=== PATIENT | male | born 1985 | race Caucasian/White ===

== ENCOUNTER 2019-07-26 14:41 | Inpatient (IN) | payer MEDICAID ==
[~2019-07-26] VITALS: Ht 175.3 cm; Wt 123.8 kg
[2019-07-26 14:58] VITALS: BP_SYST 138
[2019-07-26] MEDS ORDERED: NACL 0.9% 1,000 ML IV ONE (16:53)
[2019-07-26] MEDS ORDERED: ONDANSETRON HCL 4 MG/2 ML VIAL IVP ONE (17:00)
[2019-07-26] MEDS ORDERED: MORPHINE 4 MG/ML INJ. SYRINGE IVP ONE (17:00)
[2019-07-26 17:19] LABS: BASOPHILS # (AUTO) 0.1 K/uL (0.0-0.2); BASOPHILS % (AUTO) 0.4 % (0.0-2.0); EOSINOPHILS # (AUTO) 0.1 K/uL (0.0-0.4); EOSINOPHILS % (AUTO) 0.5 % (0.0-4.0); HEMATOCRIT 43.4 % (36-54); HEMOGLOBIN 14.6 g/dL (14.0-18.0); LYMPHOCYTES # (AUTO) 2.3 K/uL (1.0-5.5); LYMPHOCYTES % (AUTO) 16.4 % (20.5-51.5); MEAN CORPUSCULAR HEMOGLOBIN 33 pg (27-31); MEAN CORPUSCULAR HGB CONC 34 % (32-36); MEAN CORPUSCULAR VOLUME 97 fL (79.0-98.0); MONOCYTES # (AUTO) 1.4 K/uL (0.0-1.0); MONOCYTES % (AUTO) 10.1 % (1.7-9.3); NEUTROPHILS # (AUTO) 10.4 K/uL (1.8-7.7); NEUTROPHILS % (AUTO) 72.6 % (40.0-70.0); PLATELET COUNT (AUTO) 213 K/uL (130-430); RED BLOOD CELL COUNT(AUTO) 4.47 MIL/uL (4.2-6.2); WHITE BLOOD COUNT (AUTO) 14.3 K/uL (4.8-10.8)
[2019-07-26 17:38] LABS: CALCIUM 8.4 mg/dL (8.4-11.0); CREATININE 1.05 mg/dL (0.55-1.30); POTASSIUM 4.1 mmol/L (3.5-5.1)
[2019-07-26 17:45] LABS: ALBUMIN 3.2 g/dL (3.4-4.8); TOTAL BILIRUBIN 0.7 mg/dL (0.0-1.0)
[2019-07-26] MEDS ORDERED: LEVOFLOXACIN 500 MG/D5W 100 ML IV ONE (18:00)
[2019-07-26] MEDS ORDERED: metroNIDAZOLE 500 mg/NS 100 ML IV ONE (18:00)
[2019-07-26 18:04] LABS: BILIRUBIN,URINE NEGATIVE (NEGATIVE); BLOOD, URINE 2+ (NEGATIVE); CLARITY/URINE CLEAR (CLEAR); COLOR,URINE YELLOW (YELLOW); GLUCOSE,URINE NEGATIVE (NEGATIVE); KETONES,URINE NEGATIVE (NEGATIVE); LEUKOCYTE ESTERASE ,URINE NEGATIVE (NEGATIVE); NITRITE, URINE NEGATIVE (NEGATIVE); PH,URINE 6.5 (5.0-8.0); PROTEIN URINE NEGATIVE (NEGATIVE)
[2019-07-26 19:13] LABS: WBC,URINE 0-3 /HPF (0-3)
[2019-07-26 19:14] LABS: BACTERIA,URINE FEW /HPF (None Seen); MUCUS,URINE 1+ /LPF (None Seen)
[2019-07-26] MEDS ORDERED: MORPHINE 4 MG/ML INJ. SYRINGE IVP SCH (19:30)
[2019-07-26 20:36] VITALS: BP_SYST 144
[2019-07-26] MEDS: POTASSIUM CHLORIDE 10 MEQ in D5/0.45 NS 1,000 ML IV SCH (21:08)
[2019-07-26] MEDS ORDERED: ACETAMINOPHEN 650 MG SUPP.RECT RC PRN (21:15)
[2019-07-26] MEDS ORDERED: ONDANSETRON HCL 4 MG/2 ML VIAL IVP PRN (21:15)
[2019-07-26] MEDS: MORPHINE 4 MG/ML INJ. SYRINGE IVP PRN (22:09)
[2019-07-26] MEDS ORDERED: metroNIDAZOLE 500 mg/NS 200 ML IV ONE (22:21)
[2019-07-26] MEDS: metroNIDAZOLE 500 mg/NS 100 ML IV SCH (23:37)
[2019-07-27 00:38] VITALS: BP_SYST 122
[2019-07-27] MEDS: metroNIDAZOLE 500 mg/NS 100 ML IV SCH ×3 (05:34→22:20)
[2019-07-27 06:10] LABS: BASOPHILS % (AUTO) 0.3 % (0.0-2.0); EOSINOPHILS # (AUTO) 0.1 K/uL (0.0-0.4); EOSINOPHILS % (AUTO) 0.5 % (0.0-4.0); HEMATOCRIT 41.4 % (36-54); HEMOGLOBIN 13.9 g/dL (14.0-18.0); LYMPHOCYTES # (AUTO) 1.8 K/uL (1.0-5.5); LYMPHOCYTES % (AUTO) 14.4 % (20.5-51.5); MEAN CORPUSCULAR HEMOGLOBIN 33 pg (27-31); MEAN CORPUSCULAR HGB CONC 34 % (32-36); MEAN CORPUSCULAR VOLUME 98 fL (79.0-98.0); MONOCYTES # (AUTO) 1.4 K/uL (0.0-1.0); NEUTROPHILS # (AUTO) 9.3 K/uL (1.8-7.7); NEUTROPHILS % (AUTO) 73.8 % (40.0-70.0); PLATELET COUNT (AUTO) 190 K/uL (130-430); RED BLOOD CELL COUNT(AUTO) 4.25 MIL/uL (4.2-6.2); RED CELL DISTRIBUTION WIDTH 13.1 % (9.0-15.0); WHITE BLOOD COUNT (AUTO) 12.6 K/uL (4.8-10.8)
[2019-07-27 07:07] LABS: ALBUMIN 2.9 g/dL (3.4-4.8); CALCIUM 7.9 mg/dL (8.4-11.0); CREATININE 1.03 mg/dL (0.55-1.30); POTASSIUM 3.9 mmol/L (3.5-5.1); THYROID STIMULATING HORMONE 1.43 uIu/mL (0.36-3.74); TOTAL BILIRUBIN 0.9 mg/dL (0.0-1.0)
[2019-07-27] MEDS: PANTOPRAZOLE SODIUM 40 MG/VIAL (PROTONIX) IVP SCH (08:27)
[2019-07-27] MEDS: MORPHINE 4 MG/ML INJ. SYRINGE IVP PRN ×3 (08:28→21:13)
[2019-07-27 09:30] VITALS: BP_SYST 123
[2019-07-27] MEDS: POTASSIUM CHLORIDE 10 MEQ in D5/0.45 NS 1,000 ML IV SCH ×3 (09:50→23:58)
[2019-07-27 12:01] VITALS: BP_SYST 123
[2019-07-27] MEDS ORDERED: ACETAMINOPHEN 325 MG TABLET PO ONE (13:45)
[2019-07-27 16:08] VITALS: BP_SYST 127
[2019-07-27 20:00] VITALS: BP_SYST 142
[2019-07-27] MEDS: LEVOFLOXACIN 500 MG/D5W 100 ML IV SCH (21:02)
[2019-07-28 02:29] VITALS: BP_SYST 111
[2019-07-28] MEDS: metroNIDAZOLE 500 mg/NS 100 ML IV SCH ×2 (06:06→21:43)
[2019-07-28 08:00] VITALS: BP_SYST 120
[2019-07-28] MEDS: PANTOPRAZOLE SODIUM 40 MG/VIAL (PROTONIX) IVP SCH (08:37)
[2019-07-28] MEDS: MORPHINE 4 MG/ML INJ. SYRINGE IVP PRN ×2 (08:38→17:59)
[2019-07-28 12:05] VITALS: BP_SYST 118
[2019-07-28 12:18] VITALS: BP_SYST 134
[2019-07-28] MEDS ORDERED: IBUPROFEN 600 MG TABLET PO ONE (12:45)
[2019-07-28] MEDS: ACETAMINOPHEN 500 MG TABLET PO PRN ×2 (13:35→23:43)
[2019-07-28] MEDS: POTASSIUM CHLORIDE 10 MEQ in D5/0.45 NS 1,000 ML IV SCH ×2 (13:41→21:48)
[2019-07-28 16:00] VITALS: BP_SYST 127
[2019-07-28 20:00] VITALS: BP_SYST 132
[2019-07-28] MEDS: LEVOFLOXACIN 500 MG/D5W 100 ML IV SCH (21:43)
[2019-07-29 00:02] VITALS: BP_SYST 133
== END 2019-07-29 02:00 | disposition short-term general hospital (02) | DRG 244 ==
LOC: SED 14:41 → STU 19:19 → SMU 07-28 17:27
PROVIDERS: ADMIT Internal Medicine; ATTEND Internal Medicine
DX: K57.92 Diverticulitis of intestine, part unspecified, without perforation or abscess without bleeding (principal); E44.0 Moderate protein-calorie malnutrition; E87.1 Hypo-osmolality and hyponatremia; Z88.0 Allergy status to penicillin
CPT/HCPCS: 36415; 80053; 81000-TC; 83690-TC; 83735-TC; 84443-TC; 85025; 87040-TC; 87086; 96361; 96365; 96375; 99285; C9113; G0378; J1956; J2270; J2405; J3480; J3490; J7030